=== PATIENT | male | born 2005 | race Caucasian/White ===

== ENCOUNTER 2023-10-01 18:39 | Emergency (ER) | payer OTHER, SELFPAY ==
--- NOTE | ~2023-10-01 | XR_ITS ---
EXAM: XR forearm RT 2V DATE: 10/01/2023 19:07 HISTORY: right arm pain after lifting weights 1 month ago . COMPARISON: None available. FINDINGS: Normal mineralization. Distal right radial screw and plate fixation, without evident compl ication. No fracture or dislocation. No lytic or blastic lesion. Joint spaces and physes are maintain ed. No erosion or periosteal change. Soft tissues within normal limits. IMPRESSION: No acute osseous finding or radiographic evidence of hardware related complication in the right forearm. Reviewed, dictated and finalized at location K. IMPRESSION: No acute osseous finding or radiographic evidence of hardware relat ed complication in the right forearm.
[2023-10-01 18:51] VITALS: BP 133/85; PULSE 75; RESP 16; TEMP 36.9; O2SAT 100
--- NOTE | 2023-10-01 18:51 | ED.GENADULT ---
HPI - General Adult General Chief complaint: Extremity Injury, Upper Stated complaint: R ARM INJURY Time Seen by Provider: 10/01/23 19:00 Source: patient, RN notes reviewed and old records reviewed Mode of arrival: ambulatory Limitations: no limitations History of Present Illness HPI narrative: 17-year-old male to Express Care with complaint of right forearm pain for 1 month. Patient endorses that he noticed acute pain while lifting weights 1 month ago. Patient endorses that it has become acutely worse over past few days and is limiting his ability to bear weight. Patient states he attempted to treat with Tylenol without relief. Patient endorses history right wrist fracture with surgical placement of plate for repair. Patient denies numbness, tingling, decrease in stationary fireman strength. Related Data Allergies Allergy/AdvReac Type Severity Reaction Status Date / Time No Known Allergies Allergy Verified 10/01/23 19:16 Review of Systems Review of Systems: All systems reviewed & are unremarkable except as noted in HPI and below Constitutional: Constitutional: Reports no additional constitutional complaints Eyes: Eyes: Reports no additional eye complaints ENT: Reports system reviewed and no additional complaints, except as documented Cardiovascular: Cardiovascular: Reports no additional cardiovascular complaints, Denies chest pain and Denies dyspnea Respiratory: Respiratory: Reports no additional respiratory complaints, Denies cough and Denies dyspnea Musculoskeletal: Musculoskeletal: Reports as per HPI, Denies deformity, Denies limited range of motion, Reports muscle weakness (Right forearm) and Reports other (right forearm pain) Neurologic: Reports system reviewed and no additional complaints, except as documented Psychiatric: Psychiatric: Reports no additional psychiatric complaints PMFSH Past Medical History Medical History (Updated 10/01/23 @ 19:27 by Irina Welch APRN) Wrist fracture, right surgical repair; plate placed Comments At the time of my signature, I reviewed and agree with the nursing past medical, surgical, social, and family history. There is no relevant family history pertinent to the patient complaint. Exam Const: General: cooperative, healthy appearing, comfortable, no acute distress, alert and well nourished Nutritional Appearance: well nourished Orientation/consciousness: patient oriented x3 Limitations: no limitations HENMT: Head: normal to inspection Ears: external ears normal Face/Nose/Sinus: Normal external nose present, Normal nares present, normal facial exam, No erythema and No edema Face and sinus: normal facial exam, no erythema and no edema Mouth: Yes Normal oral and palatal mucosa present Eyes: General: appearance normal, both eyes and all related structures Neck: Neck: normal visual inspection, full ROM and no meningeal signs Lymphatic: no lymphadenopathy noted and no lymphedema noted Chest: Chest palpation & inspection: normal inspection of the chest Resp: Effort & Inspection: normal respiratory effort and able to speak in complete sentences Auscultation: clear to auscultation bilaterally Cardio: Jugular venous distension: no JVD Rate: regular rate Rhythm: regular rhythm Back/Spine/Pelvis: Cervical Spine: cervical ROM normal Skin: General skin exam: normal color, no rashes or lesions noted and turgor normal Neuro: General: patient oriented x3, gait normal, moves all extremities and no meningeal signs Speech: normal speech Gait exam (Neuro): Normal gait present Extrem: General: normal to inspection, full ROM and capillary refill normal Psych: Appearance: grossly normal and well kempt Course Course Emergency Course: Some parts of this dictation were generated by voice recognition software and may contain typographical and/or grammatical inaccuracies. Level of Care: Express Care Visit Vital Signs Vital signs: Vital Signs Temperature 36.9 C
== END 2023-10-01 19:30 | disposition home or self-care (01) ==
PROVIDERS: Emergency Provider Nurse Practitioner Family
DX: M79.631 Pain in right forearm (principal)
CPT/HCPCS: 73090; 99213; G0463

== ENCOUNTER 2025-04-13 19:21 | Emergency (ER) | payer OTHER, SELFPAY ==
--- NOTE | ~2025-04-13 | XR_ITS ---
Examination: XR hand RT min 3V Clinical History: fall, deformity Comparison: None Technique: 3 views right hand Findings/impression: 1. Angulated fracture fifth metacarpal head. 2. No other acute bony abnormality identified. 3. Plate and screw fixation distal radius. Reviewed, dictated and finalized at location R.
[2025-04-13 19:23] VITALS: BP 142/85; PULSE 107; RESP 18; TEMP 36.8; O2SAT 97
--- OUTSIDE RECORDS SUMMARY | 2025-04-13 19:24 | XMS_ITS | Encounter Summary ---
Author Organization [facility] Address [address] [place] [address] Phone Care Team Providers Care Endodontic Assistant Name Role Phone Castro Hernandez MD Primary Care Provider [phone] Reason for Visit * Reason Onset Date Comments Mouth Lesions 11/16/2021 Encounter Details Date Type Department Care Team (Late st Contact Info) Description 11/16/2021 Nurse Triage [facility] [address], [place] [address] Castro Hernandez MD [address], [place] [id number] Mouth Lesions Social History Tobacco Use Types Packs/Day Years Used Date Smoking Tobacco: Passive Smo ke Exposure - Never Smoker Smokeless Tobacco: Never Alcohol Use Standard Drinks/Week Comments Never 0 (1 standard drink = 0.6 oz pur e alcohol) Sex and Gender Information Value Date Recorded Sex Assigned at Not on file Legal Sex Male 8:38 AM MEDICAL LABORATORY TECHNOLOGIST Gender Identity Not on file Sexual Orientation Not on file documented as of this encounter Miscellaneous Notes * Telephone Encounter - Castro Hernandez MD - 11/16/2021 4:22 PM CDT So the lesions look like 2 different issues. The ones on his nose appear to be more consistent withimpetigo not a herpes cold sore. This is due to blowing or itching his nose. I will send mupirocin antibiotic ointment to use 3 times a day for 10 days. For his inner lip and mouth sores those appear to be canker sores not cold sore. Canker sores are not caused by HSV, but just occur to mouth irritation from biting his lip, not drinking enough water,using tooth paste with irritating ingredients, drinking coffee/tea, acidic or spicy foods among other triggers. This is not contagious and will resolve on its own. They may try Alum a pickling agent they can find in the spice aisle at the store onto the canker sores to help them resolve faster but this can burn a little when they initially put it on. * Telephone Encounter - Wilma Beatty RN - 11/16/2021 4:[address] Hernandez please advise Answer Assessment - Initial Assessment Questions 1. APPEARANCE of BLISTERS: What does it look like? Dried and crusted with yellow drainage 2. SIZE: How large an area is involved with the fever blisters? (inches, cm or compare to coins) Mother not sure 3. LOCATION: Which part of the lip is involved? Patient has 1 on his lip, 1 on his inner mouth, 1 inside his nostril and 1 on the outside. These blisters are painful and when he blows his nose the one in his nose will break open and bleed. 4. ONSET: When did the fever blisters begin? Patient has cold symptoms that started Saturday and these sores presented soon after. 5. RECURRENT BLISTERS: Has your child had fever blisters before? If so, ask: When was the last time? What happened that time? No Patient is still able to eat and drink with no complications. Mother will send image through [employer]. Protocols used: COLD SORES (FEVER BLISTERS)-P-OH * Telephone Encounter - Sonal Silva - 11/16/2021 3:34 PM CDT Pt mom calling stating pt has cold sores in nose and mouth. Mom is not sure when they started. Mom can be reached at [phone] documented in this encounter Plan of Treatment Not on file documented as of this encounter Goals Goal Patient Goal Type Associated Problems Recent Progress Patient-Stated? Author ATC General Goal Sports Med Therapy On track( 020 8:06 AM CDT) No Pablo Walters ATC Note: 1) Be able to forcefully kick a soccer ball without pain or symptoms. 2) Be able to perform weighted squats without pain or symptoms. 3) Be able to forcefully push off of toes without pain or symptoms. documented as of this encounter Visit Diagnoses Diagnosis Impetigo- Primary Canker sores oral Oral aphthae documented in this encounter Care Teams Endodontic Assistant Relationship Specialty Start Date End Date Castro Hernandez MD [address] [place] [address] PCP - General Pediatrics(General) 07/29/19 documented as of this encounter
--- OUTSIDE RECORDS SUMMARY | 2025-04-13 19:24 | XMS_ITS | Encounter Summary ---
Author Organization [facility] Address [address] [place] [address] Phone Care Team Providers Care Shactor Name Role Phone Castro Hernandez MD Primary Care Provider [phone] Reason for Visit * Reason Onset Date Comments Results 09/06/2020 Positive COVID-1 9 Encounter Details Date Type Department Care Team ([facility] st Contact Info) Description 09/06/2020 Telephone [facility] [place] [address] [place] [address] Castro Hernandez MD [address], [place] [id number] Results (Positive COVID-19) Social History Tobacco Use Types Packs/Day Years Used Date Smoking Tobacco: Passive Smo ke Exposure - Never Smoker Smokeless Tobacco: Never Alcohol Use Standard Drinks/Week Comments Not Asked 0 (1 standard drink = 0.6 oz pur e alcohol) Sex and Gender Information Value Date Recorded Sex Assigned at Not on file Legal Sex Male 8:38 AM BAND PRESSER Gender Identity Not on file Sexual Orientation Not on file COVID-19 Exposure Response Date Recorded In the last month, have you been in contact with someone who was confirmed or suspected to have Coronavirus / COVID-19? No / Unsure 08/18/2020 6:09 PM BAND PRESSER documented as of this encounter Miscellaneous Notes * Telephone Encounter - Tara Whitt LPN - 09/06/2020 7:59 AM CST Spoke with pt mother, verified name and date of and informed of below. She verbalizes understanding. No added concerns at this time. PRESSER * Telephone Encounter - Castro Hernandez MD - 09/06/2020 7:47 AM CST Please call the family and inform the family of Positive COVID-19 results. Instruct family to maintain the following precautions: ??? Stay home unless your symptoms are emergent: difficulty breathing, chest pain, unable to eat/drink, severe vomiting or weakness ??? As advised by the Centers for Disease Control and Prevention, we recommend you stay in your home and have limited contact with others to prevent spreading this infection ??? Separate yourself from other people in your home ??? Use a different bathroom if available and do not share household items like dishes, glasses, cups, forks, spoons, or towels ??? Clean counters, tabletops, doorknobs, bathroom fixtures, toilets, phones, keyboards, and tablets often ??? Clean your hands often for at least 20 seconds if soap and water is not available, use hand communication manager ??? Cover your cough and sneezes ??? Avoid touching your eyes, nose, mouth ??? Throw used tissues in a lined trashcan and wash your hands right away ??? Avoid having any unnecessary visitors ??? Ensure you stay hydrated and rest at home ??? If you cannot wear a mask, ensure others in your home wear a mask when in the same room if available ??? If you need to seek medical attention or have questions regarding your care: o Contact Patient Advisory Nurse for further direction [phone] o Avoid showing up at a healthcare facility without a plan in place ??? Home isolation can stop under the following conditions: o Have had no fever for at least 24 hours (since last fever without the use of medicine that reduces fever) AND o Other symptoms have improved AND o At least 10 days have passed since their symptoms first appears ??? If patient identifies gaps in resources needed for groceries, medication, social work/case management please route to [facility] PRESSER documented in this encounter Plan of Treatment Not on file documented as of this encounter Goals Goal Patient Goal Type Associated Problems Recent Progress Patient-Stated? Author ATC General Goal Sports Med Therapy On track( 020 8:06 AM CDT) No Pablo Walters, AJNINE Note: 1) Be able to forcefully kick a soccer ball without pain or symptoms. 2) Be able to perform weighted squats without pain or symptoms. 3) Be able to forcefully push off of toes without pain or symptoms. documented as of this encounter Visit Diagnoses Not on filedocumented in this encounter Additional Health Concerns Infection Onset Date Last Indicated Resolved Time COVID-19 09/05/2020 09/05/2020 09/26/2020 10:0 3 PM CDT Suspected COVID-19 03/17/2021 03/17/2021 1 3:59 AM CDT Suspected COVID-19 06/19/2021 06/19/2021 1 6:52 AM BAND PRESSER Suspected COVID-19 08/01/2021 08/01/2021 2 12:32 PM BAND PRESSER documented as of this encounter Care Teams Shactor Relationship Specialty Start Date End Date Castro Hernandez MD [address] [place] [address] PCP - General Pediatrics(General) 07/29/19 documented as of this encounter
--- OUTSIDE RECORDS SUMMARY | 2025-04-13 19:24 | XMS_ITS | Encounter Summary ---
Author Organization [facility] Address [address] [place] [address] Phone Care Team Providers Care Arboriculture Teacher Name Role Phone Castro Hernandez MD Primary Care Provider [phone] Reason for Referral * - Closed Specialty Diagnoses / Procedures Referred By Humberto t Referred To Contact Diagnoses Right knee pain, unspecified chronicity Procedures XR KNEE RIGHT LAT AND BILATERAL UPRIGHT / BILATERAL MERCHANT Nia Pickett MD [address] [place] [address] Phone: tel: fax: Referral ID Status Reason Start Date Expiration Date Visits Re quested Visits Authorized [id number] Closed 08/21/2019 08/20/2020 1 1 UTER SPECIALIST Encounter Details Date Type Department Care Team (Late st Contact Info) Description 08/21/2019 Orders Only [facility] Ortho/Sports Med Non-Surgical [facility] [address] [place] [address] Nia Pickett MD [address], [place] [id number] Right knee pain, unspecified chronicity (Primary Dx) Social History Tobacco Use Types Packs/Day Years Used Date Smoking Tobacco: Passive Smo ke Exposure - Never Smoker Smokeless Tobacco: Never Alcohol Use Standard Drinks/Week Comments Not Asked 0 (1 standard drink = 0.6 oz pur e alcohol) Sex and Gender Information Value Date Recorded Sex Assigned at Not on file Legal Sex Male 8:38 AM COMPUTER SPECIALIST Gender Identity Not on file Sexual Orientation Not on file documented as of this encounter Plan of Treatment Not on file documented as of this encounter Results * XR KNEE RIGHT LAT AND BILATERAL UPRIGHT / BILATERAL MERCHANT (08/24/2019 1:56 PM COMPUTER SPECIALIST) Anatomical Region Laterality Modality Knee Right Digital Radiogra phy 08/24/2019 1:55 PM COMPUTER SPECIALIST Narrative 08/26/2019 9:46 AM COMPUTER SPECIALIST Accession Exam Completed Date/Time [id number] XR KNEE RIGHT LAT AND BILATERAL UPRIGHT 08/24/2019 13:56 Requesting: NIA PICKETT XR KNEE RIGHT LAT AND BILATERAL UPRIGHT / BILATERAL MERCHANT Indication: right knee pain Comparison: None available Technique: 3 views of the right knee including upright AP and merchant views of both knees Findings: No acute fracture or dislocation. Joint spaces of both knees are maintained. No periosteal reaction or destructive bone lesions. No significant right knee joint effusion. Impression: Unremarkable examination. Electronically Signed and Authenticated by Oswaldo Stack 08/26/2019 09:46 Procedure Note Oswaldo Stack MD - 08/26/2019 Accession Exam CompletedDate/Time [id number] XR KNEE RIGHT LAT AND BILATERAL UPRIGHT 08/24/201913:56 Requesting: NIA PICKETT XR KNEE RIGHT LAT AND BILATERAL UPRIGHT / BILATERAL MERCHANT Indication: right knee pain Comparison: None available Technique: 3 views of the right knee including upright AP and merchantviews of both knees Findings: No acute fracture or dislocation. Joint spaces of both knees aremaintained. No periosteal reaction or destructive bone lesions. Nosignificant right knee joint effusion. Impression: Unremarkable examination. Electronically Signed and Authenticated by Oswaldo Stack 08/26/2019 09:46 Nia Pickett MD X-RAY Final Result documented in this encounter Visit Diagnoses Diagnosis Right knee pain, unspecified chronicity- Primary Right knee pain, unspecified chronicity documented in this encounter Additional Health Concerns Infection Onset Date Last Indicated Resolved Time Suspected COVID-19 04/07/2020 04/07/2020 0 5:02 PM CDT Suspected COVID-19 04/20/2020 04/20/2020 0 6:21 PM CDT Suspected COVID-19 08/18/2020 08/18/2020 1 1:06 AM COMPUTER SPECIALIST Suspected COVID-19 09/05/2020 09/05/2020 1 11:15 PM COMPUTER SPECIALIST COVID-19 09/05/2020 09/05/2020 09/26/2020 10:0 3 PM CDT Suspected COVID-19 03/17/2021 03/17/2021 1 3:59 AM CDT Suspected COVID-19 06/19/2021 06/19/2021 1 6:52 AM COMPUTER SPECIALIST Suspected COVID-19 08/01/2021 08/01/2021 2 12:32 PM COMPUTER SPECIALIST documented as of this encounter Care Teams Arboriculture Teacher Relationship Specialty Start Date End Date Castro Hernandez MD [address] [place] [address] PCP - General Pediatrics(General) 07/29/19 documented as of this encounter
--- OUTSIDE RECORDS SUMMARY | 2025-04-13 19:24 | XMS_ITS | Encounter Summary ---
Author Organization [facility] Address [address] [place] [address] Phone Care Team Providers Care Fish Hatchery Laborer Name Role Phone Castro Hernandez MD Primary Care Provider [phone] Reason for Visit * Reason Onset Date Comments Referral 03/31/2021 Encounter Details Date Type Department Care Team (Late st Contact Info) Description 03/31/2021 Telephone [facility] Ortho/Sports Med [address], [place] [address] Identified, No Provider Referral Social History Tobacco Use Types Packs/Day Years Used Date Smoking Tobacco: Passive Smo ke Exposure - Never Smoker Smokeless Tobacco: Never Alcohol Use Standard Drinks/Week Comments Not Asked 0 (1 standard drink = 0.6 oz pur e alcohol) Sex and Gender Information Value Date Recorded Sex Assigned at Not on file Legal Sex Male 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 No / Unsure 04/03/2021 3:29 PM CDT documented as of this encounter Miscellaneous Notes * Telephone Encounter - Mariama Keane RN - 03/31/2021 11:44 AM CDT Referral addressed in patient communications encounter. Has been sent to providers for advisement on scheduling. Closing encounter. * Telephone Encounter - Katya Moe - 03/31/2021 9:27 AM CDT Pt being referred by Jeffrey Caicedo MD for Severely impacted distal radial metaphyseal fracture, right. Please advise on scheduling. Mother can be reached at [phone] documented in this encounter Plan of Treatment Not on file documented as of this encounter Goals Goal Patient Goal Type Associated Problems Recent Progress Patient-Stated? Author ATC General Goal Sports Med Therapy On track( 020 8:06 AM CDT) No Pablo Walters, JANINE Note: 1) Be able to forcefully kick a soccer ball without pain or symptoms. 2) Be able to perform weighted squats without pain or symptoms. 3) Be able to forcefully push off of toes without pain or symptoms. documented as of this encounter Visit Diagnoses Not on filedocumented in this encounter Additional Health Concerns Infection Onset Date Last Indicated Resolved Time Suspected COVID-19 06/19/2021 06/19/2021 1 6:52 AM DIRECTOR [employer]IANCE MARKETING Suspected COVID-19 08/01/2021 08/01/2021 2 12:32 PM DIRECTOR [employer]IANCE MARKETING documented as of this encounter Care Teams Fish Hatchery Laborer Relationship Specialty Start Date End Date Castro Hernandez MD [address] [place] [address] PCP - General Pediatrics(General) 07/29/19 documented as of this encounter
--- OUTSIDE RECORDS SUMMARY | 2025-04-13 19:24 | XMS_ITS | Clinical Summary ---
Author Organization [facility] Address [address] [place] [address] Phone Care Team Providers Care County Program Technician Name Role Phone Castro Hernandez MD Primary Care Provider [phone] Allergies No known active allergies Medications acetaminophen (TYLENOL EXTRA STRENGTH) 500 mg tablet Take 500 mg by mouth every 6 hours as needed (Takes very rarely) Active ciprofloxacin-d examethasone (CIPRODEX) 0.3-0.1 % otic suspensionIndic ations:Earache on left INSTILL 4 DROPS INTO AFFECTED EACHR(S) TWICE DAILY FOR 7 DAYS 8 mL 5 12/23/19 26 Active Additional Information Patient not taking.Reported on 02/24/2025 Active Problems Problem Noted Date Diagnosed Date Colles' fracture of radius 04/03/2021 Encounters Date Type Department Care Team Description 02/24/2025 6:15 PM CDT Office Visit [facility] [address] [place] [address] Celeste Kapoor, Carlos Davis MD Testicular mass (Primary Dx) from Last 3 Months Immunizations Immunization Administration Dates Next Due DTAP/IPV (Kinrix) 10/19/2008 DTAP/IPV/HEPB (PEDIARIX) 04/14/2007,02/19/2007 DTaP-Acellular (Infanrix) 04/14/2007,02/01/2004 HEP B - Engerix 0.5ml 2003,2003 HIB - HBOC/PRP-T 02/01/2004 HIB - PRP-OMP (PEDVAX) 02/19/2007 Hepatitis A - Pediatric 10/19/2008,02/19/2007 Human Papillomavirus (Gardasil 9) 06/11/2017,07/2016 Influenza Intranasal (FLUMIST) 05/02/2009 MMR/Varivax (Proquad) 02/19/2007 Hzvguht-Bppon-Kvdkiho - MMR 10/19/2008 Meningococcal (MENACTRA) 03/16/2015 Meningococcal (MENVEO) 04/27/2020 Pneumonia (PREVNAR 7) 02/19/2007 Polio Virus (IPOL) 04/14/2007,02/01/2004 SARS-COV-2 (Pfizer Monovalent COVID-19 Juan Manuel Sucr ose) 12/20/2021 SARS-CoV-2 (Pfizer Monovalent COVID-19) 01/18/20,12/27/2020 T-dap (BOOSTRIX) 03/16/2015 Varivax under 13 10/19/2008 Family History Medical History Relation Name Comments Cancer Maternal Grandfather Heart Paternal Grandfather Hypertension Paternal Grandfather Diabetes Negative Stroke Negative Thyroid Negative Relation Name Status Comments Maternal Grandfather Paternal Grandfather Social History Tobacco Use Types Packs/Day Years Used Date Smoking Tobacco: Never Passive Smoke Exposure: Yes Smokeless Tobacco: Never Tobacco Cessation:Counseling Given: Not Answered Alcohol Use Standard Drinks/Week Comments Never 0 (1 standard drink = 0.6 oz pur e alcohol) Sex and Gender Information Value Date Recorded Sex Assigned at Not on file Legal Sex Male 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 Gender Identity Not on file Sexual Orientation Not on file Last Filed Vital Signs Vital Sign Reading Time Taken Comments Blood Pressure 128/73 02/24/2025 6:30 PM CDT Pulse 83 02/24/2025 6:30 PM CDT Temperature 37.4 C (99.4 F) 02/24/2025 6:30 PM CDT Respiratory Rate 20 02/24/2025 6:30 PM CDT Oxygen Saturation 98% 02/24/2025 6:30 PM CDT Inhaled Oxygen Concentration - - Weight 64 kg (141 lb 1.5 oz) 02/24/2025 6:30 PM CDT Height 175.3 cm (5' 9) 12/03/2024 3:13 PM CDT Body Mass Index 20.84 12/03/2024 3:13 PM CDT Plan of Treatment Health Maintenance Due Date Last Done Comments Meningococcal B Vaccine (1 of 2 - Standard) 2019 Depression Screening 04/27/2021 04/27/2020 COVID-19 Vaccine ( season) 2025 12/20/2021, 01/17/2021, 12/27/2020 Influenza Vaccine (#1) 2025 05/02/2009 DTaP/Tdap/Td Vaccines (6 - Td or Tdap) 03/16/2025 03/16/2015, 10/19/2008, 04/14/2007, Additional history exists HIB Vaccines Completed 02/19/2007, 02/01/2004 Pneumococcal Vaccines Aged Out 02/19/2007 No chrissy arsen eligible based on patient's age to complete this topic Hepatitis B Vaccines Completed 04/14/2007, 02/19/2007, 2003, Additional history exists Hepatitis A Vaccines Completed 10/19/2008, 02/20/20 07 IPV Vaccines Completed 10/19/2008, 07/2006, 04/14/2007, Additional history exists MMR Vaccines Completed 10/19/2008, 02/19/2007 Varicella Vaccines Completed 10/19/2008, 02/19/2007 HPV Vaccines Completed 06/11/2017, 11/12/2016 Meningococcal Vaccine (ACWY) Completed 04/27/2020, 03/16/2015 Rotavirus Vaccines Aged Out No longer eligible based on patient's age to complete this topic Goals Goal Patient Goal Type Associated Problems [...] off of toes without pain or symptoms. Medical Devices Implanted Type Area Javascript Front End Developer Device Identifier Shelf Expiration Date Model / Serial / Lot Plate Distl Volar Rt - Sx Implanted:Qty : 1 on 04/04/2021 by Oswaldo Jeff [place] [facility] [place] Right: Wrist [id number] / X / Screw Demetrio 3.5x12mm Cs-12 - Sx Implanted:Qty : 1 on 04/04/2021 by Oswaldo Jeff MD [place] [facility] [place] Right: Wrist [id number] / X / Screw Demetrio 3.5x12mm Cs-12 - [id number] Implanted:Qty : 1 on 04/04/2021 by Oswaldo Jeff MD [place] [facility] [place] Right: Wrist [id number] / / Screw Demetrio 3.5x12mm Cs-12 - Sx Implanted:Qty : 1 on 04/04/2021 by Oswaldo Jeff MD [place] [facility] [place] Right: Wrist [id number] / X / Screw Demetrio 3.5x12mm Cs-12 - Sx Implanted:Qty : 1 on 04/04/2021 by Oswaldo Jeff MD at [facility] [place] Right: Wrist [id number] / X / Peg Smooth Long 2x20mm P-20 - Sx Implanted:Qty : 1 on 04/04/2021 by Oswaldo Jeff MD [place] [facility] [place] Right: Wrist [id number] / X / Peg Smooth Long 2x20mm P-20 - Sx Implanted:Qty : 1 on 04/04/2021 by Oswaldo Jeff MD [place] [facility] [place] Right: Wrist [id number] / X / Peg Smooth Long 2x20mm P-20 - Sx Implanted:Qty : 1 on 04/04/2021 by Oswaldo Jeff MD at [facility] [place] Right: Wrist [id number] / X / Peg Smooth Long 2x22mm P-22 - Sx Implanted:Qty : 1 on 04/04/2021 by Oswaldo Jeff MD [place] [facility] [place] Right: Wrist [id number] / X / Insurance AETNA COMMERCIAL AET[employer] COMMERCIAL Care Teams County Program Technician Relationship Specialty Start Date End Date Castro Hernandez MD [address] [place] [address] PCP - General Pediatrics(General) 07/29/19
--- OUTSIDE RECORDS SUMMARY | 2025-04-13 19:24 | XMS_ITS | Encounter Summary ---
Author Organization [facility] Address [address] [place] [address] Phone Care Team Providers Care Adjunct Latin Professor Name Role Phone Castro Hernandez MD Primary Care Provider [phone] Reason for Visit * Reason Onset Date Comments Wrist Trauma 03/31/2021 Sascha MURRELL Vish al Anil, MD, 15yo, 03/30/21, right wrist injury, splint Encounter Details Date Type Department Care Team (Latest Contact Info) Description 03/31/2021 Patient Related Communication [facility] Ortho/Sports Med [address] [place] [address] Identified, No Provider Wrist Trauma (Sashca MURRELL Vishal Anil, MD, 15yo, 03/30/21, right wrist injury, splint) Social History Tobacco Use Types Packs/Day Years Used Date Smoking Tobacco: Passive Smo ke Exposure - Never Smoker Smokeless Tobacco: Never Alcohol Use Standard Drinks/Week Comments Not Asked 0 (1 standard drink = 0.6 oz pur e alcohol) Sex and Gender Information Value Date Recorded Sex Assigned at Not on file 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 No / Unsure 04/03/2021 3:29 PM CDT documented as of this encounter Plan of Treatment Not on file documented as of this encounter Goals Goal Patient Goal Type Associated Problems Recent Progress Patient-Stated? Author ATC General Goal Sports Med Therapy On track( 020 8:06 AM CDT) Pablo Casanova, JANINE Note: 1) Be able to forcefully kick a soccer ball without pain or symptoms. 2) Be able to perform weighted squats without pain or symptoms. 3) Be able to forcefully push off of toes without pain or symptoms. documented as of this encounter Visit Diagnoses Diagnosis Closed traumatic displaced fracture of distal end of right radius, initial encounter- Primary documented in this encounter Additional Health Concerns Infection Onset Date Last Indicated Resolved Time Suspected COVID-19 06/19/2021 06/19/2021 1 6:52 AM HOUSING DIRECTOR Suspected COVID-19 08/01/2021 08/01/2021 2 12:32 PM HOUSING DIRECTOR documented as of this encounter Care Teams Adjunct Latin Professor Relationship Specialty Start Date End Date Castro Hernandez MD [address] [place] [address] PCP - General Pediatrics(General) 07/29/19 documented as of this encounter
--- NOTE | 2025-04-13 19:35 | ED_ITS ---
HPI - Trauma General Chief Complaint: Extremity Injury, Upper Stated Complaint: hand injury Time Seen by Provider: 04/13/25 19:29 History of Present Illness HPI narrative: 19-year-old male with no pertinent past medical history presenting to the emergency department with right hand injury. Patient states he tripped and fell forward with a closed fist hitting the ground with his hand Feels like he had a deformity to his right upper extremity and is having some limited range of mot ion of the hand. No paresthesias or pain at rest but has pain when he moves his pinky and trying to make a fist again. no other symptoms. No head trauma. No paresthesias or numbness/weakness in the digits. Related Data Allergies Allergy/AdvReac Type Severity Reaction Status Date / Time No Known Allergies Allergy Verified 10/01/23 19:16 Review of Systems Review of Systems: As reviewed above in HPI [facility] Past Medical History Medical History Wrist fracture, right surgical repair; plate placed Exam Narrative: GENERAL: [Well-appearing, well-nourished, and in no acute distress.] HEAD: [Normocephalic, atraumatic.] EYES: [PERRLA and EOMI.] ENT: Nares clear, no rhinorrhea or epistaxis. Mucous membranes moist. NECK: Supple. CHEST: [Clear to auscultation. No respiratory distress.] HEART: [Regular rate and rhythm]. No murmur heard. [Normal peripheral pulses.] ABDOMEN: [Soft, nondistended], [nontender], [No rigidity or guarding] EXTREMITIES: deformity to the right 5th metacarpal area with some swelling and tenderness to palpation. Limited range of motion of the pinky with flexion limited secondary to pain. Able to move the MCP PIP and D IP joints of the finger without difficulty. Full range of motion at the wrist pronation and supination as well as radial and ulnar deviation. SKIN: Warm, dry, no rash. NEURO: [No focal deficits]. Alert and oriented [x3.] PSYCH: [Normal mood and affect.] Course Vital Signs Vital signs: Vital Signs Temperature 36.8 C 04/13/25 19:23 Pulse Rate 107 H 04/13/25 19:23 Respiratory Rate 18 04/13/25 19:23 Blood Pressure 142/85 H 04/13/25 19:23 Pulse Oximetry 97 04/13/25 19:23 Oxygen Delivery Room Air 04/13/25 19:23 Temperature 36.8 C 04/13/25 19:23 Pulse Rate 107 H 04/13/25 19:23 Respiratory Rate 18 04/13/25 19:23 Blood Pressure 142/85 H 04/13/25 19:23 Pulse Oximetry 97 04/13/25 19:23 Oxygen Delivery Room Air 04/13/25 19:23 Procedures Orthopedic Fracture Reduction Fracture #1: Fracture Reduction date: 04/13/25 Fracture Reduction time: 20:35 Time Out Performed: Yes Side: right Fracture Reduction Location: metacarpal Analgesia: other (Oral pain meds) Pre-Procedure Neuro Vascular Exam: normal Technique: direct manipulation and traction/counter-traction Post Reduction X-rays Demonstrate: other (physical evidence of better alignment, no films ordered) Post-reduction neuro exam: intact Post-reduction vascular exam: intact Splint Applied: Yes Patient Tolerated Procedure: well and no complications Orthopedic Splinting/Casting Injury #1: Splinting/Casting Date: 04/13/25 Splinting/Casting Time: 20:47 Side: right Upper Extremity Injury Location: hand Upper Extremity Immobilizer: ulnar gutter Splint: customized in ED Pre-Procedure Neuro Vascular Exam: normal Post-Procedure Neuro Vascular Exam: normal MDM - Trauma MDM Narrative Medical decision making narrative: 19-year-old male with no pertinent past medical history presenting to the emergency department with right hand injury. Patient states he tripped and fell forward with a closed fist hitting the ground with his hand Feels like he had a deformity to his right upper extremity and is having some limited range of motion of the hand. No paresthesias or pain at rest but has pain when he moves his pinky and trying to make a fist again. no other symptoms. No head trauma. No paresthesias or numbness/weakness in the digits. x-ray obtained shows angulated fracture of the 5th metacarpal consistent with boxes fracture. Approximately 25? of angulation. Patient was given Fielding for analgesia and direct counter traction manipulation used for better anatomic alignment with reduction presents at bedside. Patient tolerated the reduction and splint was applied with ulnar gutter formed in the ED. Neuro vasculature and capillary refill status intact prior to and after reduction and splint application. Patient safe for discharge home with ortho/hand follow-up. Given pain medications on discharge and answered all his questions. Medical Records Attestation: I reviewed the patient's medical records. Imaging Data Attestation: I personally reviewed and interpreted this imaging study as follows: My impression: Maggy fx, 25 degree angulation Radiologist's impression: Findings/impression: 1. Angulated fracture fifth metacarpal head. 2. No other acute bony abnormality identified. 3. Plate and screw fixation distal radius. Discharge Plan Discharge Clinical Impression: Closed fracture of 5th metacarpal Patient Disposition: Home Condition: Stable Instructions: Antibiotic Form, Boxer Fracture (ED) Additional Instructions: You sustained a boxer's fracture in your right hand which we reduced in the emergency department. Maintain the splint for comfort and stability of the joint. Follow-up with hand surgery. Return with any concerns, skin discoloration, paresthesias or numbness in the fingers or any emergent issues Patient Language: Portuguese Prescriptions: New acetaminophen [Tylenol Extra Strength] 500 mg tablet 1,000 mg PO TID PRN (Reason: pain) Qty: 30 0RF ibuprofen 600 mg tablet 600 mg PO TID PRN (Reason: pain) Qty: 20 0RF No Action ibuprofen 600 mg tablet 600 mg PO TID PRN (Reason: pain) Qty: 30 0RF Follow-up/Referrals: Sofía Spencer MD [Physician, Plastic Surgery] - 1 Week Referral Note: angulated boxer's fracture, reduced in ED PHYSICIAN,BIOINFORMATICS ENGINEER [Primary Care Provider, Internal Medicine] Time of Disposition: 20:54
--- OUTSIDE RECORDS SUMMARY | 2025-04-13 20:14 | XMS_ITS | Encounter Summary ---
Author Organization [facility] Address [address] [place] [address] Phone Care Team Providers Care Spring Winder Name Role Phone Castro Hernandez MD Primary Care Provider [phone] Reason for Referral * - Closed Specialty Diagnoses / Procedures Referred By Humberto t Referred To Contact Diagnoses Right knee pain, unspecified chronicity Procedures XR KNEE RIGHT LAT AND BILATERAL UPRIGHT / BILATERAL MERCHANT Nia Pickett MD [address] [place] [address] Phone: tel: fax: Referral ID Status Reason Start Date Expiration Date Visits Re quested Visits Authorized [id number] Closed 08/21/2019 08/20/2020 1 1 IDE REPAIRER SPECIAL Encounter Details Date Type Department Care Team (Late st Contact Info) Description 08/21/2019 Orders Only [facility] Ortho/Sports Med Non-Surgical [place] Ortho/Sports Med [address] [place] [address] Nia Pickett MD [address] [place], [place] [id number] Right knee pain, unspecified chronicity (Primary Dx) Social History Tobacco Use Types Packs/Day Years Used Date Smoking Tobacco: Passive Smo ke Exposure - Never Smoker Smokeless Tobacco: Never Alcohol Use Standard Drinks/Week Comments Not Asked 0 (1 standard drink = 0.6 oz pur e alcohol) Sex and Gender Information Value Date Recorded Sex Assigned at Not on file Legal Sex Male 8:38 AM OUTSIDE REPAIRER SPECIAL Gender Identity Not on file Sexual Orientation Not on file documented as of this encounter Plan of Treatment Not on file documented as of this encounter Results * XR KNEE RIGHT LAT AND BILATERAL UPRIGHT / BILATERAL MERCHANT (08/24/2019 1:56 PM OUTSIDE REPAIRER SPECIAL) Anatomical Region Laterality Modality Knee Right Digital Radiogra phy 08/24/2019 1:55 PM OUTSIDE REPAIRER SPECIAL Narrative 08/26/2019 9:46 AM OUTSIDE REPAIRER SPECIAL Accession Exam Completed Date/Time [id number] XR KNEE RIGHT LAT AND BILATERAL UPRIGHT [...] Stack MD - 08/26/2019 Accession Exam CompletedDate/Time [id number] XR KNEE RIGHT LAT AND BILATERAL UPRIGHT [...] Suspected COVID-19 08/18/2020 08/18/2020 1 1:06 AM OUTSIDE REPAIRER SPECIAL Suspected COVID-19 09/05/2020 09/05/2020 1 11:15 PM OUTSIDE REPAIRER SPECIAL COVID-19 09/05/2020 09/05/2020 09/26/2020 10:0 3 PM CDT Suspected COVID-19 03/17/2021 03/17/2021 1 3:59 AM CDT Suspected COVID-19 06/19/2021 06/19/2021 1 6:52 AM OUTSIDE REPAIRER SPECIAL Suspected COVID-19 08/01/2021 08/01/2021 2 12:32 PM OUTSIDE REPAIRER SPECIAL documented as of this encounter Care Teams Spring Winder Relationship Specialty Start Date End Date Castro Hernandez MD [address] [place] [address] PCP - General Pediatrics(General) 07/29/19 documented as of this encounter
--- OUTSIDE RECORDS SUMMARY | 2025-04-13 20:14 | XMS_ITS | Encounter Summary ---
Author Organization [facility] Address [address] [place] [address] Phone Care Team Providers Care Curing Press Operator Name Role Phone Castro Hernandez MD Primary Care Provider [phone] Reason for Visit * Reason Onset Date Comments Mouth Lesions 11/16/2021 Encounter Details Date Type Department Care Team (Late st Contact Info) Description 11/16/2021 Nurse Triage [facility] [address], [place] [address] Castro Hernandez MD [address], [place] [address] Mouth Lesions Social History Tobacco Use Types Packs/Day Years Used Date Smoking Tobacco: Passive Smo ke Exposure - Never Smoker Smokeless Tobacco: Never Alcohol Use Standard Drinks/Week Comments Never 0 (1 standard drink = 0.6 oz pur e alcohol) Sex and Gender Information Value Date Recorded Sex Assigned at Not on file Legal Sex Male 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 Mother will send image through [employer]. Protocols used: COLD SORES (FEVER BLISTERS)-P-OH * Telephone Encounter - Sonal Silva - 11/16/2021 3:34 PM CDT Pt mom calling stating pt has cold sores in nose and mouth. Mom is not sure when they started. Mom can be reached at [phone] documented in this encounter Plan of Treatment [...] aphthae documented in this encounter Care Teams Curing Press Operator Relationship Specialty Start Date End Date Castro Hernandez MD [address] [place] [address] PCP - General Pediatrics(General) 07/29/19 documented as of this encounter
--- OUTSIDE RECORDS SUMMARY | 2025-04-13 20:14 | XMS_ITS | Encounter Summary ---
Author Organization [facility] Address [address] [place] [address] Phone Care Team Providers Care Senior Clinical Research Associate Name Role Phone Castro Hernandez MD Primary Care Provider [phone] Reason for Visit * Reason Onset Date Comments Clinical SX During Covid-19 Outbreak 04/07/2020 Encounter Details Date Type Department Care Team (Late st Contact Info) Description 04/07/2020 [address] 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 No / Unsure 04/07/2020 9:08 AM CDT documented as of this encounter Miscellaneous Notes * Telephone Encounter - Kim Pleitez - 04/07/2020 8:20 AM CDT Patient called regarding possible COVID symptoms. Patient screened through [facility] COVID screening questions and advised to present to the approved testing site. Patient advised clinical staff on-site may re-screen. documented in this encounter Plan of Treatment [...] Suspected COVID-19 08/18/2020 08/18/2020 1 1:06 AM MACHINE ADJUSTER Suspected COVID-19 09/05/2020 09/05/2020 1 11:15 PM MACHINE ADJUSTER COVID-19 09/05/2020 09/05/2020 09/26/2020 10:0 3 PM CDT Suspected COVID-19 03/17/2021 03/17/2021 1 3:59 AM CDT Suspected COVID-19 06/19/2021 06/19/2021 1 6:52 AM MACHINE ADJUSTER Suspected COVID-19 08/01/2021 08/01/2021 2 12:32 PM MACHINE ADJUSTER documented as of this encounter Care Teams Senior Clinical Research Associate Relationship Specialty Start Date End Date Castro Hernandez MD [address] [place] [address] PCP - General Pediatrics(General) 07/29/19 documented as of this encounter
--- OUTSIDE RECORDS SUMMARY | 2025-04-13 20:14 | XMS_ITS | Encounter Summary ---
Author Organization [facility] Address [address] [place] [address] Phone Care Team Providers Care Salesperson Florist Supplies Name Role Phone Castro Hernandez MD Primary Care Provider [phone] Reason for Visit * Reason Onset Date Comments Wrist Trauma 03/31/2021 Sascha MURRELL Vish al Anil, MD, 15yo, 03/30/21, right wrist injury, splint Encounter Details Date Type Department Care Team (Latest Contact Info) Description 03/31/2021 Patient Related Communication [facility] Ortho/Sports Med [address] [place] [address] Identified, No Provider Wrist Trauma (Sascha MURRELL Vishal Anil, MD, 15yo, 03/30/21, right [...] file Legal Sex Male 8:38 AM COMPUTER FORENSICS ANALYST Gender Identity Not on file Sexual Orientation [...] COVID-19 06/19/2021 06/19/2021 1 6:52 AM COMPUTER FORENSICS ANALYST Suspected COVID-19 08/01/2021 08/01/2021 2 12:32 PM COMPUTER FORENSICS ANALYST documented as of this encounter Care Teams Salesperson Florist Supplies Relationship Specialty Start Date End Date Castro Hernandez MD [address] [place] [address] PCP - General Pediatrics(General) 07/29/19 documented as of this encounter
--- OUTSIDE RECORDS SUMMARY | 2025-04-13 20:14 | XMS_ITS | Encounter Summary ---
Author Organization [facility] Address [address] [place] [address] Phone Care Team Providers Care Hot Roller Name Role Phone Castro Hernandez MD Primary Care Provider [phone] Reason for Visit * Reason Onset Date Comments Results 09/06/2020 Positive COVID-1 9 Encounter Details Date Type Department Care Team ([facility] st Contact Info) Description 09/06/2020 Telephone [facility] [address] [place] [address] Castro Hernandez MD [address], [place] [id number] Results (Positive COVID-19) Social History Tobacco Use Types Packs/Day Years Used Date Smoking Tobacco: Passive Smo ke Exposure - Never Smoker Smokeless Tobacco: Never Alcohol Use Standard Drinks/Week Comments Not Asked 0 (1 standard drink = 0.6 oz pur e alcohol) Sex and Gender Information Value Date Recorded Sex Assigned at Not on file Legal Sex Male 8:38 AM REHABILITATION PROGRAM MANAGER Gender Identity Not on file Sexual Orientation Not on file COVID-19 Exposure Response Date Recorded In the last month, have you been in contact with someone who was confirmed or suspected to have Coronavirus / COVID-19? No / Unsure 08/18/2020 6:09 PM REHABILITATION PROGRAM MANAGER documented as of this encounter Miscellaneous Notes * Telephone Encounter - Tara Whitt LPN - 09/06/2020 7:59 AM CST Spoke with pt mother, verified name and date of and informed of below. She verbalizes understanding. No added concerns at this time. BILITATION PROGRAM MANAGER * Telephone Encounter - Castro Hernandez MD [...] and water is not available, use hand crime analyst ??? Cover your cough and sneezes ??? [...] Contact Patient Advisory Nurse for further direction [phone] o Avoid showing up at a healthcare [...] social work/case management please route to [facility] ([facility]) BILITATION PROGRAM MANAGER documented in this encounter Plan of Treatment [...] Suspected COVID-19 06/19/2021 06/19/2021 1 6:52 AM REHABILITATION PROGRAM MANAGER Suspected COVID-19 08/01/2021 08/01/2021 2 12:32 PM REHABILITATION PROGRAM MANAGER documented as of this encounter Care Teams Hot Roller Relationship Specialty Start Date End Date Castro Hernandez MD [address] [place] [address] PCP - General Pediatrics(General) 07/29/19 documented as of this encounter
--- OUTSIDE RECORDS SUMMARY | 2025-04-13 20:14 | XMS_ITS | Encounter Summary ---
Author Organization [facility] Address [address] [place] [address] Phone Care Team Providers Care Chin Strap Maker Name Role Phone Castro Hernandez MD Primary Care Provider [phone] Reason for Visit * Reason Onset Date Comments Referral 03/31/2021 Encounter Details Date Type Department Care Team (Late st Contact Info) Description 03/31/2021 Telephone [facility] [address], [place] [address] Identified, No Provider Referral Social History Tobacco Use Types Packs/Day Years Used Date Smoking Tobacco: Passive Smo ke Exposure - Never Smoker Smokeless Tobacco: Never Alcohol Use Standard Drinks/Week Comments Not Asked 0 (1 standard drink = 0.6 oz pur e alcohol) Sex and Gender Information Value Date Recorded Sex Assigned at Not on file 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 Mother can be reached at [phone] documented in this encounter Plan of Treatment [...] Suspected COVID-19 06/19/2021 06/19/2021 1 6:52 AM MOTION STUDY TECHNICIAN Suspected COVID-19 08/01/2021 08/01/2021 2 12:32 PM MOTION STUDY TECHNICIAN documented as of this encounter Care Teams Chin Strap Maker Relationship Specialty Start Date End Date Castro Hernandez MD [address] [place] [address] PCP - General Pediatrics(General) 07/29/19 documented as of this encounter
--- OUTSIDE RECORDS SUMMARY | 2025-04-13 20:14 | XMS_ITS | Clinical Summary ---
Author Organization [facility] Address [address] [place] [address] Phone Care Team Providers Care Irish Moss Gatherer Name Role Phone Castro Hernandez MD Primary Care Provider [phone] Allergies No known active allergies Medications acetaminophen [...] Description 02/24/2025 6:15 PM CDT Office Visit [facility] [address] [place] [address] Celeste Kapoor, Carlos Davis MD Testicular mass (Primary Dx) from Last 3 Months Immunizations Immunization Administration Dates Next Due DTAP/IPV (Kinrix) 10/19/2008 DTAP/IPV/HEPB (PEDIARIX) 04/14/2007,02/19/2007 DTaP-Acellular (Infanrix) 04/14/2007,02/01/2004 HEP B - Engerix 0.5ml 2003,2003 HIB - HBOC/PRP-T 02/01/2004 HIB - PRP-OMP (PEDVAX) 02/19/2007 Hepatitis A - Pediatric 10/19/2008,02/19/2007 Human Papillomavirus (Gardasil 9) 06/11/2017,07/2016 Influenza Intranasal (FLUMIST) 05/02/2009 MMR/Varivax (Proquad) 02/19/2007 Thnlcjs-Gslqh-Azonhbf - MMR 10/19/2008 Meningococcal (MENACTRA) 03/16/2015 Meningococcal [...] on file 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 Medical Devices Implanted Type Area Charge Operator Device Identifier Shelf Expiration Date Model / Serial / Lot Plate Distl Volar Rt - Sx Implanted:Qty : 1 on 04/04/2021 by Oswaldo Jeff MD at [facility] [place] [employer] Right: Wrist [id number] / X / Screw Demetrio 3.5x12mm Cs-12 - Sx Implanted:Qty : 1 on 04/04/2021 by Oswaldo Jeff MD at [facility] [place] [employer] Right: Wrist [id number] / X / Screw Demetrio 3.5x12mm Cs-12 - [id number] Implanted:Qty : 1 on 04/04/2021 by Oswaldo Jeff MD at [facility] [place] [employer] [employer] Right: Wrist [id number] / / Screw Demetrio 3.5x12mm Cs-12 - Sx Implanted:Qty : 1 on 04/04/2021 by Oswaldo Jeff MD at [facility] [place] [employer] Right: Wrist [id number] / X / Screw Demetrio 3.5x12mm Cs-12 - Sx Implanted:Qty : 1 on 04/04/2021 by Oswaldo Jeff MD at [facility] [place] [employer] Right: Wrist [id number] / X / Peg Smooth Long 2x20mm P-20 - Sx Implanted:Qty : 1 on 04/04/2021 by Oswaldo Jeff MD at [facility] [place] [employer] Right: Wrist [id number] / X / Peg Smooth Long 2x20mm P-20 - Sx Implanted:Qty : 1 on 04/04/2021 by Oswaldo Jeff MD at [facility] [place] [employer] Right: Wrist [id number] / X / Peg Smooth Long 2x20mm P-20 - Sx Implanted:Qty : 1 on 04/04/2021 by Oswaldo Jeff MD at [facility] [place] [employer] Right: Wrist [id number] / X / Peg Smooth Long 2x22mm P-22 - Sx Implanted:Qty : 1 on 04/04/2021 by Oswaldo Jeff MD at [facility] [place] [employer] Right: Wrist [id number] / X / Insurance [employer]CIAL [employer] Care Teams Irish Moss Gatherer Relationship Specialty Start Date End Date Castro Hernandez MD [address] [place] [address] PCP - General Pediatrics(General) 07/29/19
[2025-04-13] MEDS: HYDROcodone/acetaminophen (*CRX) 5-325 MG TABLET 1 TAB PO (20:26)
== END 2025-04-13 21:35 | disposition home or self-care (01) ==
PROVIDERS: Emergency Provider Student in an Organized Health Care Education/Training Program
DX: S62.396A Other fracture of fifth metacarpal bone, right hand, initial encounter for closed fracture (principal); W01.0XXA Fall on same level from slipping, tripping and stumbling without subsequent striking against object, initial encounter
CPT/HCPCS: 26605; 73130; 99285; A9270

== ENCOUNTER 2025-05-03 12:55 | Outpatient (CLI) | payer OTHER, SELFPAY ==
--- NOTE | ~2025-05-03 | XR_ITS ---
EXAMINATION: XR hand RT min 3V, 05/03/2025 13:20 CDT HISTORY: S62.336A - Displaced fracture of neck of fifth metacarpal... COMPARISON: No comparisons available. Findings: Healing fracture of the distal fifth metacarpal No significant degenerative changes. Soft tissues unremarkable. Impression: Healing fracture Reviewed, dictated and finalized at location P. Impression: Healing fracture
== END 2025-05-03 12:56 | disposition home or self-care (01) ==
PROVIDERS: Visit Provider Plastic Surgery
DX: S62.336D Displaced fracture of neck of fifth metacarpal bone, right hand, subsequent encounter for fracture with routine healing (principal); X58.XXXD Exposure to other specified factors, subsequent encounter
CPT/HCPCS: 73130